=== PATIENT | female | born 1960 | race Caucasian/White ===

== ENCOUNTER 2016-04-29 06:57 | Emergency (ER) | payer OTHER ==
[~2016-04-29] VITALS: Ht 157.5 cm; Wt 80.6 kg
[~2016-04-29 06:57] MED LIST: COEN10CA5 PO; CYAN100020 PO; MULTTAB58 PO; TOPI100T34 PO
[2016-04-29 07:02] VITALS: BP 203/108; PULSE 94; TEMP 36.6; O2SAT 100; Ht 157.5 cm; Wt 80.6 kg
[2016-04-29] MEDS ORDERED: IBUP-1427 PO (07:42)
[2016-04-29] MEDS ORDERED: HYDR-5688 PO (07:42)
[2016-04-29] MEDS ORDERED: HYDROCODONE/ACETAMOPHEN 5/325MG TAB PO ONE (07:45)
--- NOTE | 2016-04-29 07:46 | EMERGENCY ROOM VISIT NOTE ---
History Report prepared by Morro: Pb Raymond Under the Supervision of: Dr. Reynaldo Garcia M.D. First contact with patient: 07:09 Chief Complaint: OTHER COMPLAINT Stated Complaint: SHINGLES,PAIN History of Present Illness The patient is a 55 year old female who presents to the Emergency Room with complaints of worsening pain associated with shingles for the past week. The patient describes a burning sensation that is somewhat relieved from Ibuprofen and is rated 7/10 in severity. She has the pain along with lesions on the left side of her face, neck, and back of her head. The patient also feels the pain in her left ear and throat. The patient was diagnosed with shingles at [facility] two days ago. She noticed the rash several days after the onset of her pain. She does not have any pain or lesions on the end of her nose or the rest of her body. The patient notes that she has some blurry vision from the left eye. The patient is on Valtrex which she started two days ago. The patient denies abdominal pain, problems with her bowels or other symptoms. Source of History: patient Onset: one week ago Position: other (left side of face) Symptom Intensity: 7/10 Quality: burning, other (shingles) Timing: worsening Modifying Factors (Relieving): ibuprofen Associated Symptoms: No abdominal pain Review of Systems All systems have been listed, reviewed, and are negative other than those previously mentioned. Please see Additional Medical History Sheet. Past Medical & Surgical Medical Problems: (1) Cervical stenosis of spinal canal Surgical Problems: (1) H/O neck surgery (2) H/O: hysterectomy Family History Cancer FH: aneurysm Gallbladder disease Heart disease Hypertension Social History Smoking Status: Current Every Day Smoker Alcohol Use: occasionally Marital Status: , in relationship Housing Status: lives with family Occupation Status: employed Current/Historical Medications Scheduled Topiramate (Topamax), 50 MG PO BID Valacyclovir (Valtrex), 1,000 MG PO TID Scheduled PRN Hydrocodone/Acetaminophen 5MG/325MG (Bradley 5MG/325MG), 1-2 TABLETS PO Q4 PRN for Pain Ibuprofen Tab (Motrin), 600 MG PO Q6H PRN for Pain Allergies Coded Allergies: No Known Allergies (Unverified , 03/18/14) Physical Exam Vital Signs Date Time Temp Pulse Resp B/P Pulse Ox O2 Delivery O2 Flow Rate FiO2 04/29/16 07:02 36.6 94 20 203/108 100 Room Air Physical Exam GENERAL: Patient awake, alert, oriented x 3. Patient follows commands. Patient does not appear toxic. Patient is adequately hydrated and well- nourished. SKIN: No erythema, pallor, or cyanosis. HEENT: Multiple lesions on the left side of her face in various stages of eruption. Few small lesions on the back of her scalp on the left side. Slit lamp examination with fluorescein reveals no uptake or lesions of the cornea or conjunctiva, anterior chamber was clear. Does not appear to have any lesions in the ear canal itself but does have some on the left ear lobe. No lesions on the end of her nose. Oral cavity and posterior pharynx appear normal. Neck: Without adenopathy, no neck vein distention. LUNGS: Clear to auscultation. No wheezes, no rales, no rhonchi. HEART: No murmurs. No gallops. No rubs NEUROLOGIC: Cranial nerves II-XII within normal limits. No gross motor sensory function deficits. Medical Decision & Procedures Medications Administered Medications (Trade) Dose Ordered Sig/Steve Route Start Time Stop Time Status Last Admin Dose Admin Acetaminophen/ Hydrocodone Bitart (Bradley 5/325 Tab) 2 tab ONE ONCE PO 04/29/16 07:45 04/29/16 07:46 DC 04/29/16 07:47 2 TAB Procedure Slit Lamp Examination Indication: blurry vision. The left eye was prepped with topical proparacaine. Slit lamp examination was performed in the standard fashion. Cornea appeared clear. Anterior chamber was clear. Scleral injection not present. No discharge present. Fluorescein examination performed and revealed no uptake. No foreign bodies noted. Negative Urbano sign. The patient tolerated the procedure well without complication. ED Course 0710: Past medical records reviewed. The patient was evaluated in room A10. A complete history and physical examination was performed. 0717: Slit lamp examination performed. Please see procedural note above. 0740: Discussed the discharge instructions with the patient. She verbalized understanding and agreement of the plan. 0745: The [place] Prescription Drug Monitoring Program was reviewed regarding this patient. No issues were found. Medical Decision I considered multiple diagnoses including herpes zoster, herpes ophthalmicus, Xiomara Philip syndrome. The patient appears to have herpes zoster over the face without involvement of the nose or eye. The patient does not have facial paralysis. The patient is currently on Valtrex. The patient is to take pain medication as needed and continue the Valtrex. She is to follow-up with a family physician. If she has any further eye symptoms she is to follow-up with an relationship consultant or fiberglass boat finisher. [place] Drug Monitoring Program Search Results: patient reviewed within database, no issues identified Impression Primary Impression: Herpes zoster Scribe Attestation The scribe's documentation has been prepared under my direction and personally reviewed by me in its entirety. I confirm that the note above accurately reflects all work, treatment, procedures, and medical decision making performed by me. Departure Information Dispostion Home / Self-Care Prescriptions Hydrocodone/Acetaminophen 5MG/325MG (Bradley 5MG/325MG) Tab 1-2 TABLETS PO Q4 Y for Pain, #30 TAB PRN PAIN Prov: Reynaldo Garcia M.D. 04/29/16 Ibuprofen Tab (MOTRIN) 600 Mg Tab 600 MG PO Q6H Y for Pain, #30 TAB Prov: Reynaldo Garcia M.D. 04/29/16 Referrals No Doctor, Assigned (PCP) Forms HOME CARE DOCUMENTATION FORM, IMPORTANT VISIT INFORMATION Patient Instructions My [facility] [employer], Shingles Herpes Zoster Additional Instructions Continue Valtrex 3 times a day for a total of 7 days. Continue ibuprofen 600 mg every 6 hours until pain has resolved. You may take 1-2 hydrocodone every 4 hours as needed for more severe pain. Do not drive or operate machinery while taking narcotics. Follow-up with your family physician or eye doctor if you have any more symptoms involving your eye.
[2016-04-29] MEDS ORDERED: VALA500T60 PO (07:56)
== END 2016-04-29 08:04 | disposition home or self-care (01) ==
LOC: C.EDB 06:59 → C.EDA 08:04
DX: B02.9 Zoster without complications (principal); F17.200 Nicotine dependence, unspecified, uncomplicated; Z90.710 Acquired absence of both cervix and uterus; Z98.890 Other specified postprocedural states; Z82.49 Family history of ischemic heart disease and other diseases of the circulatory system

== ENCOUNTER 2021-05-10 05:15 | Inpatient (IN) ==
[2021-05-10] MEDS ORDERED: ASPIRIN 81 MG CHEW PO STA (05:29)
--- NOTE | 2021-05-10 05:29 | Emergency Department Note ---
History of Present Illness General Chief complaint: Chest Pain Stated complaint: CHEST PAIN,HANDS TINGLE,SPASMS,SWEATS Time Seen by Provider: 05/10/21 05:19 History of Present Illness Maximum Pain Intensity: 10 60-year-old female presents emergency department with sudden onset of substernal chest pressure that radiated to her left arm with associated shortness of breath diaphoresis that has been ongoing since 2 AM this morning. Patient has taken aspirin prior to arrival. Patient states that the pains actually decreased she describes it as a chest tightness. Patient is a smoker has a history of hypertension. Patient has no prior cardiac history patient currently rates the pain 2 out of 10 radiating to the left arm. There were no other mitigating or alleviating factors Home Medications Medication Instructions Recorded Confirmed Type fluoxetine 10 mg capsule 20 mg PO DAILY 12/06/18 05/10/21 History hydrochlorothiazide 12.5 mg capsule 25 mg PO DAILY 12/06/18 05/10/21 History amlodipine 10 mg tablet 10 mg PO DAILY 05/10/21 05/10/21 History losartan 100 mg tablet 100 mg PO DAILY 05/10/21 05/10/21 History Allergies Allergy/AdvReac Type Severity Reaction Status Date / Time No Known Allergies Allergy Verified 05/10/21 05:57 Past Med/Surg History Medical History (Updated 05/10/21 @ 06:05 by Hussein Hodge DO) Cervical stenosis of spinal canal (04/30/13) HTN (hypertension) Surgical History H/O neck surgery H/O: hysterectomy Social History Smoking Status: Current some day smoker Preferred Language: Norwegian Feels Safe at Home: Yes Review of Systems A total of 10 systems reviewed and were otherwise negative Respiratory: no chest congestion Cardiovascular: + chest pain, + chest pain at rest, + radiating jaw, neck or arm pain and + dyspnea on exertion Gastrointestinal: + nausea Physical Exam Vital Signs Vital Signs - 24 hr 05/10/21 05:18 05/10/21 05:33 05/10/21 05:36 Temperature 36 C L Temperature Source Temporal Artery Scan Pulse Rate 89 88 93 H Pulse Rate from SpO2 Sensor Respiratory Rate 20 18 17 Blood Pressure 155/82 H 176/108 H 188/104 H Blood Pressure Mean 106 130 132 Blood Pressure Position Sitting Pulse Oximetry 98 97 97 Oxygen Delivery Method Room Air Room Air Room Air Sepsis Recent Fever Within 48 Hours No Sepsis New/Unexplained Change in Mental Status N/A Sepsis Action Taken by Nursing No Action Required 05/10/21 05:45 05/10/21 05:51 05/10/21 06:00 Temperature Temperature Source Pulse Rate 92 H 96 H 90 Pulse Rate from SpO2 Sensor 91 H Respiratory Rate 19 24 16 Blood Pressure 156/94 H 141/91 H Blood Pressure Mean 114 107 Blood Pressure Position Pulse Oximetry 99 94 Oxygen Delivery Method Room Air Room Air Sepsis Recent Fever Within 48 Hours Sepsis New/Unexplained Change in Mental Status Sepsis Action Taken by Nursing VITAL SIGNS - Vital signs and nursing notes were reviewed. GENERAL - []-year-old [] appearing [] stated age who is in no acute distress. Communicates well with provider and answers questions appropriately. SKIN - Without rashes. HEAD - NC/AT. EYES - PERRL with EOMI bilaterally. Sclera anicteric. Palpebral conjunctiva pink and moist with no injection noted. EARS - No deformities of external structures noted on gross examination bilaterally. No pain elicited with palpation of the tragus bilaterally. External auditory canals without discharge or otorrhea. Tympanic membranes pearly hicks without retraction or bulging. No fluid or purulent material visualized behind the TM. Handle of malleus, umbo, cone of light, pars tensa/flaccid all easily visualized. NOSE - Midline and without cyanosis. No epistaxis or purulent drainage noted. Septum midline without deviation or septal hematoma noted. MOUTH/OROPHARYNX - Without perioral cyanosis. Buccal mucosa pink and moist and without leukoplakia. Tongue midline with equal elevation of palate bilaterally. No tonsillar hypertrophy, erythema, or exudates noted. [] dentition noted. NECK - Neck with FROM. Supple to palpation. [] lymphadenopathy noted. No nuchal rigidity. LUNGS - Chest wall symmetric without accessory muscle use, intercostals retractions, or central cyanosis. Normal vesicular breath sounds CTA B/L. No wheezes, rales, or rhonchi appreciated. CARDIAC - RRR with S1/S2. No murmur, rubs, or gallops appreciated. ABDOMEN - Abdominal contour [] without pulsations or visible masses. BS normoactive all four quadrants. No tenderness, palpable masses, hepatosplenomegaly, or ascites noted. EXTREMITIES - No clubbing or peripheral cyanosis. No pretibial edema present. +3/5 radial, posterior tibial, and dorsalis pedis pulses palpated throughout. +5/5 strength noted in UE/LE bilaterally. NEUROLOGIC - Cranial nerves II through XII grossly intact. Sensory intact to light touch throughout. Patellar reflexes +2/4. PSYCH - A&Ox3 and cooperates fully with examiner. Pt is very pleasant and interacts well with examiner. Course Reevaluation(s) Reevaluation #1: PatientCardiac cath team was activated immediately after the EKG showing inferior wall PR. The case was discussed with the [facility] Hospitalist also for admission at 5:39 AM. Reevaluation #2: Patient is currently resting in mild distress with 3 out of 10 chest pain blood pressure systolic greater than 170, currently awaiting cardiac cath team arrival Reevaluation #3: 50 4 AM patient states decreased pain from 9 out of 10 down to a 2 out of 10, was given IV fentanyl, nitro. Consultations Consultation #1: Dr Reyes at bedside 603am, report given to him by me; pt to cardiac bottle label inspector Administered Medications Discontinued Medications Aspirin (Aspirin 81 Mg Chew) 324 mg PO NOW STA Stop: 05/10/21 05:30 Last Admin: 05/10/21 05:34 Dose: 324 mg Documented by: [id number] Fentanyl Citrate (Fentanyl Citrate 100 Mcg/2 Ml Vial) Confirm Administered Dose 100 mcg .ROUTE .STK-MED ONE Stop: 05/10/21 05:46 Last Increment: 05/10/21 05:49 Dose: 50 mcg Documented by: [id number] Nitroglycerin (Nitroglycerin Sl 0.4 Mg/Tab Tab) Confirm Administered Dose 0.4 mg .ROUTE .STK-MED ONE Stop: 05/10/21 05:48 Last Admin: 05/10/21 05:48 Dose: 0.4 mg Documented by: [id number] Critical Care Time Critical Care Time: Yes Total Critical Care Time: 35 Total critical care time is 35 minutes involving a patient with an acute inferior wall PR, with multiple reevaluations, discussion with nurses, review of old records, discussion with , discussion with cardiac industry consultant Medical Decision Making Medical Records Attestation: I reviewed the patient's medical records. Laboratory Data Attestation: I reviewed the patient's lab results. Result diagrams: 05/10/21 05:39 05/10/21 05:39 Lab Results 05/10/21 05/10/21 05/10/21 Range/Units 05:34 05:39 05:39 WBC 7.47 (4.8-10.8) K/uL RBC 4.45 (4.2-5.4) M/uL Hgb 13.8 (12.0-16.0) g/dL Hct 40.1 (37-47) % MCV 90.1 (80-100) fL MCH 31.0 (25-34) pg MCHC 34.4 (32-36) g/dL RDW Std Deviation 45.9 (36.4-46.3) fL RDW Coeff of Abdias 13.9 (11.5-14.5) % Plt Count 329 (130-400) K/uL MPV 9.6 (7.4-10.4) fL Immature Gran % (Auto) 0.3 % Neut % (Auto) 67.2 % Lymph % (Auto) 20.9 % Mcdonough % (Auto) 9.8 % Eos % (Auto) 1.3 % Baso % (Auto) 0.5 % Neut # (Auto) 5.02 (1.4-6.5) K/uL Lymph # (Auto) 1.56 (1.2-3.4) K/uL Mcdonough # (Auto) 0.73 H (0.11-0.59) K/uL Eos # (Auto) 0.10 (0-0.5) K/uL Baso # (Auto) 0.04 (0-0.2) K/uL Immature Gran # (Auto) 0.02 (0.00-0.02) K/uL Sodium 134 L (136-145) mmol/L Potassium 3.9 (3.5-5.1) mmol/L Chloride 101 (98-107) mmol/L Carbon Dioxide 24 (21-32) mmol/L Anion Gap 9 (3-11) BUN 12 (6-23) mg/dl Creatinine 0.66 (0.6-1.2) mg/dl Est Cr Clr Drug Dosing 95.3 ml/min Est GFR ( Amer) 112.9 ml/min Est GFR (Non-Af Amer) 97.4 ml/min BUN/Creatinine Ratio 18.2 (10-20) Glucose 172 H (70-99(Fasting)) mg/dl Calcium 9.1 (8.5-10.1) mg/dl Total Bilirubin 0.3 (0.2-1.0) mg/dl AST 21 (13-39) U/L ALT 28 (7-52) U/L Alkaline Phosphatase 69 (34-104) U/L Troponin I 0.34 H* (0-0.04) ng/ml Total Protein 6.8 (6.0-8.3) gm/dl Albumin 4.3 (3.4-5.0) gm/dl Globulin 2.5 (2.5-4.0) gm/dl Albumin/Globulin Ratio 1.7 (0.9-2) SARS-CoV-2, RNA, NAAT NEGATIVE (NEGATIVE) Imaging Data Attestation: I personally reviewed and interpreted this imaging study as follows: My Impression: Chest x-ray interpreted by me cardiomegaly normal mediastinum no obvious infiltrate or pneumothorax ECG Data Attestation: I personally reviewed and interpreted this ECG as follows: Additional Comments: EKG interpreted by me normal sinus rhythm rate of 91 normal intervals there is ST segment elevation in 2 3 and aVF with reciprocal changes in V1 1 V2 1 and aVL consistent with acute inferior wall PR EKG #2 is a right-sided EKG interpreted by me V3 ER and V4 are do not show any significant ST segment elevation, patient still has obvious inferior wall PR in leads II, III and aVF with ST segment elevation present MDM Narrative Medical decision making differential diagnosis angina, unstable angina, acute coronary syndrome, acute PR, musculoskeletal chest pain, GERD; plan is to check labs cardiac evaluation, patient has an ST segment elevation PR that is inferior on EKG, immediately the cardiac cath team was activated Impression & Plan ST elevation myocardial infarction (STEMI), Chest pain Discharge Plan Visit Data Chief Complaint: Chest Pain Stated Complaint: CHEST PAIN,HANDS TINGLE,SPASMS,SWEATS ED Provider: Hussein Hodge Discharge Problem: ST elevation myocardial infarction (STEMI), Chest pain Patient Disposition: Admitted As Inpatient Discharge Instructions Interventions: ED Discharge Assessment Last Done: 05/10/21 06:05 Discharge Problem: ST elevation myocardial infarction (STEMI) Qualifiers: Involved coronary artery: right coronary artery Qualified Code(s): I21.11 - ST elevation (STEMI) myocardial infarction involving right coronary artery Chest pain Qualifiers: Chest pain type: chest pain due to myocardial ischemia
[2021-05-10] MEDS ORDERED: fentaNYL citrate 100 MCG/2 ML VIAL ONE ×2 (05:45→05:46)
[2021-05-10] MEDS ORDERED: HEPARIN (PORCINE) 1000 UNIT/ML 10 ML (CATH LAB USE ONLY) ONE (05:46)
[2021-05-10] MEDS ORDERED: MIDAZOLAM HCL 1 MG/ML 2ML VIAL ONE ×2 (05:46→06:47)
[2021-05-10] MEDS ORDERED: niCARdipine HCL INJ 2.5 MG/ML 10 ML AMP ONE (05:46)
[2021-05-10] MEDS ORDERED: NITROGLYCERIN SL 0.4 MG/TAB TAB ONE ×2 (05:47→05:48)
[2021-05-10] MEDS ORDERED: NITROGLYCERIN/D5W 100MCG/ML 20ML SYR ONE (05:47)
[2021-05-10 05:56] LABS: Basophils # (auto) 0.04 K/uL (0-0.2); Basophils % (auto) 0.5 %; Eosinophils % (auto) 1.3 %; Hematocrit (blood only) 40.1 % (37-47); Hemoglobin 13.8 g/dL (12.0-16.0); Immature Granulocytes # (auto) 0.02 K/uL (0.00-0.02); Immature Granulocytes % (auto) 0.3 %; Lymphocytes # (auto) 1.56 K/uL (1.2-3.4); Lymphocytes % (auto) 20.9 %; Mean Corpuscular Hgb Conc 34.4 g/dL (32-36); Mean Corpuscular Volume 90.1 fL (80-100); Mean Platelet Volume 9.6 fL (7.4-10.4); Monocytes # (auto) 0.73 K/uL (0.11-0.59); Monocytes % (auto) 9.8 %; Neutrophils # (auto) 5.02 K/uL (1.4-6.5); Neutrophils % (auto) 67.2 %; Platelet Count 329 K/uL (130-400); RDW Coefficient of Variation 13.9 % (11.5-14.5); RDW Standard Deviation 45.9 fL (36.4-46.3); Red Blood Count 4.45 M/uL (4.2-5.4); White Blood Count 7.47 K/uL (4.8-10.8)
--- NOTE | 2021-05-10 06:10 | Pre Anesthesia Assessment ---
Date of Service May 10, 2021 Pre Sedation Assessment Vital Signs Temp Pulse Resp BP Pulse Ox 05/10/21 06:00 90 16 141/91 H 05/10/21 05:51 96 H 24 156/94 H 94 05/10/21 05:45 92 H 19 99 05/10/21 05:36 93 H 17 188/104 H 97 05/10/21 05:33 88 18 176/108 H 97 05/10/21 05:18 96.8 F L 89 20 155/82 H 98 Cardiovascular RRR, no murmur, no edema Respiratory normal respiratory effort, lungs clear to auscultation Pre-Sedation Airway Assessment Smoking Status: Current some day smoker Hx Sleep Apnea: No Hx Difficult Intubation: No Short, Thick Neck: No Thyromental Distance: < 3.5 Finger Breadths Oral Cavity: + WNL Mallampati Class: III ASA: ASA4 Procedure Planning Contraindications for Sedation: none Current Medications Reviewed: Yes Notes The planned sedation has been discussed with the patient. Informed Consent was obtained. I have identified the patient, determined the appropriateness of sedation and have assessed the patient immediately prior to the procedure. All medicine(s) and interventions are by my order.
--- NOTE | 2021-05-10 06:15 | Cardiology Consultation ---
Date of Consultation May 10, 2021 Assessment & Plan (1) ST elevation myocardial infarction (STEMI): Presentation consistent with inferior STEMI and recommend proceeding with emergent cardiac catheterization and likely primary PCI. No apparent contraindications to procedure. Discussed risks, benefits, alternatives of procedure with patient and they are willing to proceed. Given aspirin in the ED. Further recommendations pending findings of coronary angiography. History of Present Illness History of Present Illness 60-year-old woman here with acute chest pain and ECG concerning for acute AK. Patient seen emergently in the ED after heart alert activated on arrival. No prior cardiac history. Cardiac risk factors include hypertension, active smoking and family history of CAD (brother of AK at age 60, mother had angioplasty, from brain aneurysm). Other medical issues include cervical spinal stenosis post neck surgery, recent ankle fracture. Chest pain began approximately around 2 in the morning, 3 hours prior to arrival after had been awoken by her dog. Describes substernal pain radiating to arm with associated nausea. Denies similar symptoms in the past. Chest pain at time of arrival 09/03. Hemodynamically stable. EKG showed inferior ST elevations. Allergies Allergy/AdvReac Type Severity Reaction Status Date / Time No Known Allergies Allergy Verified 05/10/21 05:57 Home Medications Medication Instructions Recorded Confirmed Type fluoxetine 10 mg capsule 20 mg PO DAILY 12/06/18 05/10/21 History hydrochlorothiazide 12.5 mg capsule 25 mg PO DAILY 12/06/18 05/10/21 History amlodipine 10 mg tablet 10 mg PO DAILY 05/10/21 05/10/21 History losartan 100 mg tablet 100 mg PO DAILY 05/10/21 05/10/21 History Patient History Medical History (Updated 05/10/21 @ 06:05 by Hussein Hodge DO) Cervical stenosis of spinal canal (04/30/13) HTN (hypertension) Surgical History H/O neck surgery H/O: hysterectomy Social History Smoking Status: Current some day smoker Preferred Language: Ghanaian Feels Safe at Home: Yes Review of Systems Review of Systems: All systems reviewed & are unremarkable except as noted in HPI & below Physical Exam Physical Exam: General: Comfortable HEENT: Sclerae anicteric Lungs: Clear to auscultation bilaterally Cardiac: Regular rate and rhythm, no murmurs. Vascular: 2+ radial Abdomen: Soft, nontender Extremities: Well perfused, no peripheral edema Neuro: Nonfocal Psych: Alert orient x3, normal affect and mood Results & Data ([facility]) Vital Signs (Past 12 Hours) Vital Signs Temp Pulse Resp BP Pulse Ox 05/10/21 06:00 90 16 141/91 H 05/10/21 05:51 96 H 24 156/94 H 94 05/10/21 05:45 92 H 19 99 05/10/21 05:36 93 H 17 188/104 H 97 05/10/21 05:33 88 18 176/108 H 97 05/10/21 05:18 96.8 F L 89 20 155/82 H 98 PG Care Time/CCT Total # of Minutes Spent Total Time Spent with Patient: Total time spent is greater than 50% in coordination of care (as documented) at patient's floor/unit and/or counseling patient: Coding Level of Care Code 78245 Inpt Consult Level [address] elevation myocardial infarction (STEMI) I21.11 Involved coronary artery: right coronary artery (1) ST elevation myocardial infarction (STEMI) Involved coronary artery: right coronary artery Qualified Code(s): I21.11 - ST elevation (STEMI) myocardial infarction involving right coronary artery
[2021-05-10 06:23] LABS: Albumin Globulin Ratio 1.7 (0.9-2); Albumin Level 4.3 gm/dl (3.4-5.0); BUN Creatinine Ratio 18.2 (10-20); Bilirubin,Total 0.3 mg/dl (0.2-1.0); Calcium 9.1 mg/dl (8.5-10.1); Creatinine Clr Calc Pharmacy 95.3 ml/min; Est GFR (African American) 112.9 ml/min; Est GFR (Non-African American) 97.4 ml/min; Globulin 2.5 gm/dl (2.5-4.0); Potassium 3.9 mmol/L (3.5-5.1); Total Protein 6.8 gm/dl (6.0-8.3)
[2021-05-10 06:30] LABS: Troponin I 0.34 ng/ml (0-0.04)
[2021-05-10 06:48] LABS: INR 0.9 (0.9-1.1); Partial Thromboplastin Ratio 0.9; Partial Thromboplastin Time 25.9 Seconds (21.0-31.0); Prothrombin Time 9.9 Seconds (9.0-12.0)
--- NOTE | 2021-05-10 06:51 | XRay Report ---
XR chest 1V portable CLINICAL HISTORY: Atypical chest pain. COMPARISON STUDY: Chest radiograph April 21, 2013. FINDINGS: Lung volumes are normal. No pneumothorax or pleural effusion is noted. There is no consolid ation to suggest pneumonia. Mild cardiomegaly is noted. There is no evidence for pulmonary edema. The re are postoperative findings within the cervical spine. Mild elevation of the right hemidiaphragm is unchanged. IMPRESSION: No acute cardiopulmonary findings. Mild cardiomegaly. ACT 112: Negative or not required by law. Electronically signed by: Dionisio Mccarthy M.D. 05/10/2021 6:50 AM
[2021-05-10] MEDS ORDERED: TICAGRELOR 90 MG TAB PO ONE (07:27)
--- NOTE | 2021-05-10 07:31 | Post Anesthesia Assessment ---
Date of Service May 10, 2021 Post Sedation Assessment Vital Signs Temp Pulse Resp BP Pulse Ox 05/10/21 06:00 90 16 141/91 H 05/10/21 05:51 96 H 24 156/94 H 94 05/10/21 05:45 92 H 19 99 05/10/21 05:36 93 H 17 188/104 H 97 05/10/21 05:33 88 18 176/108 H 97 05/10/21 05:18 96.8 F L 89 20 155/82 H 98 Recovery Score Activity: Moves 4 extremities Respiration: Deep Breath/Cough Circulation: +/-20% PreAnes Value Consciousness: Fully Awake Oxygen Saturation: O2 needed for >90% Discharge Sedation Level of Care: Fast Track Phase II Post Sedation Plan On clinical assessment, the patient appears to have tolerated the sedation without complications. Patient is recovering as anticipated. Patient will continue to be monitored by nursing and may be discharged when sedation discharge criteria are met per below protocol. Upon Completions of procedure up to 15 minutes continue every 5 minute vital signs and the P.A.R. score; then discharge to a Phase I or Fast Track to Phase II per the following guidelines: * Discharge Patient to appropriate Phase II area if PAR is 8 or greater or return to pre- procedure baseline. The post - procedure orders will be as directed. * If PAR score is less than 8 or not return to pre-procedure baseline then patient will follow Phase I monitoring till PAR is reached for Phase II. The Phase I may be done in procedure room or may call to secure a Phase I area. * If naloxone or flumazenil are used for reversal, hold in Phase I for continued monitoring from when last reversal dose was given for a minimum of 60 minutes or longer pending the nurse and/or physician discretion of patient condition before discharge to Phase II. Please call the Sedation Physician to re-evaluate and complete post-note for discharge to Phase II area. Do NOT discharge from procedure sedation or Phase 1 until post- sedation evaluation note is complete by procedure /sedation MD Sedation Discharge Instructions to be given to the patient at discharge to home.
[2021-05-10] MEDS ORDERED: ONDANSETRON INJ 2 MG/ML 2 ML VIAL IV PRN (07:32)
[2021-05-10] MEDS ORDERED: NITROGLYCERIN SL 0.4 MG/TAB TAB SL PRN (07:32)
[2021-05-10] MEDS ORDERED: ACETAMINOPHEN 325 MG TAB PO PRN (07:32)
[2021-05-10] MEDS ORDERED: ICU PROTOCOL FOR HYPERGLYCEMIA PRN (07:37)
[2021-05-10] MEDS ORDERED: SODIUM CHLORIDE 0.9% 1000ML 1,000 ML IV SCH (07:45)
--- NOTE | 2021-05-10 08:05 | Cardiac Catheterization ---
[facility] Data: Felt Finisher Cardiac Status Clinical evaluation leading to the procedure CAD Presenation: STEMI Anginal Classification: CCS IV Heart Failure: No Cardiogenic Shock within 24 Hours: No Cardiac Arrest within 24 Hours: No Imaging Studies Past 6 Months: No Stress Studies Past 6 Months: No Diagnostic Physicians Name: Yariel Reyes MD Closure Device Percutaneous Entry Location: Radial Closure Device: Radial Band Recommendations: PCI without planned CABG PCI Indication: Immediate PCI for STEMI Lesion Segment Name: distal RCA Culprit Artery: Yes Stenosis Prior to Rx (%): 99 Chronic Total Occlusion: No IVUS: No FFR: No Pre-Procedure PALOMO Flow: 3 Previously Treated Lesion: No Lesion Complexity: Non-High/Non-C Thrombus Present: Yes Bifurcation Lesion: No Guidewire Across Lesion: Stenosis Post-Procedure (%): 0 Post-Procedure PALOMO Flow: 3 Devices(s) Deployed: Yes Yes Intraprocedure Events Significant Disection: No Perforation: No Cardiac Cath Procedure Full Procedure Date May 10, 2021 Pre-Procedure Diagnosis Pre-Procedure Diagnosis: STEMI AUC Score AUC Score: 9 Post-Procedure Diagnosis Post-Procedure Diagnosis: Severe CAD, Successful PCI and Elevated Intracardiac Pressures Procedure(s) Performed Procedure(s) Performed: Coronary Angiography, Left Heart Cath and Drug Eluting Stent Pugger Helper Yariel Reyes MD Conveyor Worker(s) Customer Service Voice Estimated Blood Loss Estimated Blood Loss: 15 Medication(s) Medication(s): Fentanyl, Heparin, Lidocaine 1%, Nicardipine, Nitroglycerin and Versed Medication(s): Ticagrelor Summary of Findings Indication: STEMI/Heart Alert Access: 6 Fr right radial artery Catheters: [place], JL 3.5, JR4 guide Findings: LM -in caliber, no significant disease LAD -medium caliber, 30% mid segment disease, distal vessel tapers to apex. Medium D1, D2 without significant disease. Circumflex -small caliber, no significant disease. RCA -dominant, medium caliber, 30% proximal disease, 50% mid segment disease, 99% distal stenosis. Small right PDA, PLB without significant disease LVEDP -30 -- PCI -- Antithrombotic therapy: Heparin, ticagrelor Procedure: RCA cannulated with JR4 guide Brim Cutter 50 wire passed across lesion into distal vessel Distal RCA lesion predilated with 2.0 compliant balloon Dilated lesion stented with 2.25 x 22 [place] drug-eluting stent Stent post-dilated with 2.5 noncompliant balloon IC vasodilators administered for spasm Moderate residual stenosis just prior to stent and second FRED (2.5 x 12 mm Phuc) placed across stenosis overlapping proximal aspect of initial stent Stent postdilated with 3.0 NC balloon Post procedure PALOMO 3 flow, stents well expanded with minimal residual stenosis and no apparent cardiac complications. Arterial Closure: TR band Summary: 1. Inferior STEMI/acute 99% distal RCA stenosis 2. Mild to moderate non-culprit coronary artery disease -30% mid LAD 50% mid RCA 3. Elevated intracardiac filling pressure 4. Successful PCI of mid to distal RCA with 2 overlapping drug-eluting stents (2.5 x 12, 2.25 x 22 mm Phuc; postdilated with 3.0 NC) Recommendations: Admit to ICU for continued monitoring Loaded with ticagrelor 180 mg in Felt Finisher Continue dual-antiplatelet therapy for at least 1 year. Trend troponins until peak, Check Echo Uptitrate beta-hermelinda/ARB as BP allows High-dose statin Consult cardiac Rehab Hemodynamics Rest Ao:: 140/78/106 Final Ao: 125/72/105 LV: 140/32 Recommendations Recommendations: PCI without planned CABG Specimens Specimens: None Radiation Exposure (mGy) 3647 Contrast (mls) 150 Fluids (cc crystalloids) Fluids (cc crystalloids): 126 Drains Drains: none Anesthesia moderate [id number] Procedural Complication(s) None Disposition ICU I attest to the content of the Intraoperative Record and any orders documented therein. Any exceptions are noted below. [facility] Card Cath Procedure Codes Cardiac Catheterization Procedure 1: Cardiovascular Cath Procedures: 47456 Coronaries and LHC (+/-LV) Moderate Sedation Procedure 1: Sedation/Anesthesia: 26553 Mod Sedation by the same physician;Init15 Min Child Age 5 & Up Procedure 2: Sedation/Anesthesia: 48168 Mod Sedation by the same physician; Ea [id number] Minutes Stenting Procedure 1: Cardiovascular Stent Procedures: 75711 Perc transluminal revascularization of acute sub/total occl, aMI PG Care Time/CCT Total # of Minutes Spent Total Time Spent with Patient: Total time spent is greater than 50% in coordination of care (as documented) at patient's floor/unit and/or counseling patient:
--- NOTE | 2021-05-10 08:35 | History & Physical Report ---
Date of Service May 10, 2021 Assessment & Plan (1) ST elevation myocardial infarction (STEMI): (2) Chest pain: (3) Tobacco use: (4) HTN (hypertension): Plan: - Admitted for chest pain found to have inferior STEMI -Taken to the cardiac [facility] by Dr. Reyes 05/10/2021, now s/p 2 overlapping FRED placement in the mid to distal RCA -Loaded with Brilinta 180 mg in the Target Trimmer -Continue dual antiplatelet therapy x1 year (Brillinta and baby asa) -Initial troponin was 0.34 will trend until peak -Check 2D echo -Started on metoprolol 25 mg BID, losartan 25 mg QAM, titrate up as BP allows -Initiated high-dose statin therapy -Consult cardiac rehab -Consult cardiology, Dr. Cleveland - Discussed tobacco cessation at bedside, she denies the need for a nicotine patch, diet and exercise were discussed as well. DVT PPx - teds, scds, dual antiplatelet therapy CODE: Full code Dispo: From home, likely to remain in the hospital x 1-2 days Admission and Anticipated Discharge Date Admission Date: May 10, 2021 History of Present Illness Chief Complaint: Chest pain Primary Care Provider: Caty Myers DO This is a 60-year-old W with PMHx of HTN, tobacco use, and family history with a brother who of an SC at age 60, mother with angioplasty and from brain aneurysm. Her other medical history includes cervical spinal stenosis s/p neck surgery, and recent ankle fracture. She reports going to bed without any pain around 10-11pm, and was woken up by her dog early in the morning. She went to use the restroom and noticed increased SOB and thought at first it was abdominal cramping, but then quickly realized it was pain in her chest, and started sweating. She presented acutely to the ER approximately 2 AM with chest pain. She describes substernal pain with radiation to the arm, nausea and shortness of breath. Never in the past has ever experienced pain like this. Her chest pain initially was a 7/10 and was hemodynamically stable. Her EKG was changed showing inferior ST wave elevations. Heart alert was called and patient was taken to the cardiac [facility] by Dr. Reyes. Distal RCA was found to be 99% occluded, and 2 FRED were placed; one in the distal RCA, the second placed overlapping the proximal aspect of the initial stent due to moderate residual stenosis after the initial stent placement. Other findings include 30% occlusion of the mid LAD, 50% occlusion of the mid RCA. Patient was placed in t ICU for post procedural monitoring. Currently has no chest pain. Pt reports drinking alcohol 2-3 drinks, 3 times per week. She smokes cigarettes while she drinks, and considers herself a "closet smoker" because nobody in her family knows she does this. Allergies Allergy/AdvReac Type Severity Reaction Status Date / Time No Known Allergies Allergy Verified 05/10/21 05:57 Home Medications Medication Instructions Recorded Confirmed Type fluoxetine 10 mg capsule 20 mg PO DAILY 12/06/18 05/10/21 History hydrochlorothiazide 12.5 mg capsule 25 mg PO DAILY 12/06/18 05/10/21 History amlodipine 10 mg tablet 10 mg PO DAILY 05/10/21 05/10/21 History losartan 100 mg tablet 100 mg PO DAILY 05/10/21 05/10/21 History Past Med/Surg History Medical History Cervical stenosis of spinal canal (04/30/13) HTN (hypertension) Surgical History H/O neck surgery H/O: hysterectomy Social History Smoking Status: Current some day smoker Hx Alcohol Use: Yes Hx Substance Use: No Preferred Language: Syrian Communication Ability: Effective Application Penetration Tester Required: No Beliefs That Will Affect Care: None marital status: Current Living Situation: Spouse Feels Safe at Home: Yes Safety Concerns: Feels Safe At This Time Assistive Devices: None Review of Systems Review of Systems: Constitutional: No fever, sweats or chills Eyes: No diplopia, no worsening or blurred vision ENT: normal hearing, no trouble swallowing Respiratory: No cough, sputum, dyspnea at rest or on exertion Cardiovascular: No chest pain, tightness or palpitations Abdomen: No pain, nausea, vomiting, diarrhea or constipation Musculoskeletal: No joint pain, calf pain, swelling Neurologic: No weakness, numbness/tingling, or balance problems Psychiatric: No anxiety or depression Skin: No rash or itch Physical Exam Physical Exam: General: awake, alert, no apparent distress, obese with BMI of 30 Head: Normocephalic, atraumatic ENT: PERRL, EOMI, no pharyngeal exudate, mucous membranes moist Chest: Clear to auscultation, on room air, no adventitious breath sounds Cardiac: Regular rate and rhythm, no murmur, no JVD, normal peripheral pulses, good capillary refill Abdominal: NABS x 4 quadrants, soft, nondistended, nontender to palpation, no rebound or guarding Extremities: R wrist radial band is in place s/p cath. Otherwise normal inspection, no peripheral edema or erythema, calfs nontender to palpation Psych: Normal mood and affect Neuro: AAO x 3, strength intact bilaterally and rated 5/5, no motor deficits, speech is clear, no peripheral sensory deficits Results & Data Results & Data ([facility]) Vital Signs (Past 12 Hours) Vital Signs Temp Pulse Pulse Resp BP BP Pulse Ox 05/10/21 08:13 36.4 C L 62 16 121/75 94 05/10/21 06:00 90 16 141/91 H 05/10/21 05:51 96 H 24 156/94 H 94 05/10/21 05:45 92 H 19 99 05/10/21 05:36 93 H 17 188/104 H 97 05/10/21 05:33 88 18 176/108 H 97 05/10/21 05:18 36 C L 89 20 155/82 H 98 Laboratory Results 05/10/21 05/10/21 05/10/21 06:42 05:39 05:39 WBC RBC Hgb Hct MCV MCH MCHC RDW Std Deviation RDW Coeff of Abdias Plt Count MPV Immature Gran % (Auto) Neut % (Auto) Lymph % (Auto) [place] % (Auto) Eos % (Auto) Baso % (Auto) Neut # (Auto) Lymph # (Auto) [place] # (Auto) Eos # (Auto) Baso # (Auto) Immature Gran # (Auto) PT 9.9 INR 0.9 APTT 25.9 PTT Ratio 0.9 Activ Coag Time Kaolin 309 H Sodium 134 L Potassium 3.9 Chloride 101 Carbon Dioxide 24 Anion Gap 9 BUN 12 Creatinine 0.66 Est Cr Clr Drug Dosing 95.3 Est GFR ( Amer) 112.9 Est GFR (Non-Af Amer) 97.4 BUN/Creatinine Ratio 18.2 Glucose 172 H Calcium 9.1 Total Bilirubin 0.3 AST 21 ALT 28 Alkaline Phosphatase 69 Troponin I 0.34 H* Total Protein 6.8 Albumin 4.3 Globulin 2.5 Albumin/Globulin Ratio 1.7 SARS-CoV-2, RNA, NAAT 05/10/21 05/10/21 05:39 05:34 WBC 7.47 RBC 4.45 Hgb 13.8 Hct 40.1 MCV 90.1 MCH 31.0 MCHC 34.4 RDW Std Deviation 45.9 RDW Coeff of Abdias 13.9 Plt Count 329 MPV 9.6 Immature Gran % (Auto) 0.3 Neut % (Auto) 67.2 Lymph % (Auto) 20.9 [place] % (Auto) 9.8 Eos % (Auto) 1.3 Baso % (Auto) 0.5 Neut # (Auto) 5.02 Lymph # (Auto) 1.56 [place] # (Auto) 0.73 H Eos # (Auto) 0.10 Baso # (Auto) 0.04 Immature Gran # (Auto) 0.02 PT INR APTT PTT Ratio Activ Coag Time Kaolin Sodium Potassium Chloride Carbon Dioxide Anion Gap BUN Creatinine Est Cr Clr Drug Dosing Est GFR ( Amer) Est GFR (Non-Af Amer) BUN/Creatinine Ratio Glucose Calcium Total Bilirubin AST ALT Alkaline Phosphatase Troponin I Total Protein Albumin Globulin Albumin/Globulin Ratio SARS-CoV-2, RNA, NAAT NEGATIVE Diagnostic Findings Chest X-Ray 05/10/21 05:19 XR chest 1V portable CLINICAL HISTORY: Atypical chest pain. COMPARISON STUDY: Chest radiograph April 21, 2013. FINDINGS: Lung volumes are normal. No pneumothorax or pleural effusion is noted. There is no consolidation to suggest pneumonia. Mild cardiomegaly is noted. There is no evidence for pulmonary edema. There are postoperative findings within the cervical spine. Mild elevation of the right hemidiaphragm is unchanged. IMPRESSION: No acute cardiopulmonary findings. Mild cardiomegaly. ACT 112: Negative or not required by law. Electronically signed by: Dionisio Mccarthy M.D. 05/10/2021 6:50 AM Code Status & VTE Plan Code Status Full code-discussed with patient at bedside VTE Prophylaxis Plan VTE Prophylaxis will be ordered: Yes Supervising Physician Co-Signing Physician Notes Patient seen and examined. History notable for 60-year-old woman current smoker with hypertension who presents with chest pain that started on 2 - 3AM this morning Patient reports occasional smoking. Reports family history of brother dying in his 60s some months ago from a heart attack and mother had heart attack too but from an aneurysm Patient was noted to have inferior wall STEMI on presentation. Heart alert was called and patient was taken to [facility] where she got 2 drug eluting stents and distal RCA Physical exam notable for obese woman in no distress. Chest pain is resolved Inferior wall STEMI S/p 2 FRED to dRCA Was loaded with brilinta Continue ASA and brilinta Started on atorvastatin Check A1c and lipid panel Counselled patient extensively on smoking cessation. She reported she will quit Agree with other plans as detailed by Aletha Meza PA-C (1) ST elevation myocardial infarction (STEMI) Involved coronary artery: right coronary artery Qualified Code(s): I21.11 - ST elevation (STEMI) myocardial infarction involving right coronary artery (2) Chest pain Chest pain type: chest pain due to myocardial ischemia
[2021-05-10] MEDS ORDERED: ASPIRIN 81 MG ECTAB PO SCH (09:00)
[2021-05-10] MEDS: ATORVASTATIN 40 MG TAB PO SCH (09:54)
[2021-05-10] MEDS: METOPROLOL TARTRATE 25 MG TAB PO SCH ×2 (09:54→20:49)
[2021-05-10] MEDS: LOSARTAN POTASSIUM 25 MG TAB PO SCH (09:54)
[2021-05-10] MEDS: FLUoxetine HCL 20 MG CAP PO SCH (09:55)
--- NOTE | 2021-05-10 10:20 | Critical Care Consultation ---
Date of Consultation May 10, 2021 Assessment & Plan (1) ST elevation myocardial infarction (STEMI): Reason Critically Ill: 60-year-old female status post ST elevation LA PLAN: Resp: Tobacco use -Smoking cessation CV: Coronary artery disease -81 mg aspirin, 80 mg atorvastatin, 25 mg metoprolol, losartan 25 mg, Brilinta 90 mg twice daily ID: Afebrile GI/Nutrition: Obesity: BMI 30 Heme: DVT prophylaxis: Patient is ambulatory able to ambulate therefore pharmacologic prophylaxis not indicated Endocrine: ICU hyperglycemia protocol Hemoglobin A1c pending Vascular access: PIV Code Status: Full Code Disposition: ICU (2) HTN (hypertension): (3) Tobacco use: (4) Chest pain: History of Present Illness Reason for Consultation: Status post coronary PCI for STEMI Requesting Physician: Otis Reyes Attending Physician: Colleen Vieyra MD History of Present Illness Patient is a 60-year-old female who has a past medical history of hypertension, tobacco use, early age coronary artery disease from a brother who of an LA at age 62 who presents with increasing shortness of breath and chest pain and diaphoresis. In the emergency department patient's was diagnosed with acute ST elevation LA and underwent PCI and had 2 drug-eluting stents placed in the RCA. Allergies Allergy/AdvReac Type Severity Reaction Status Date / Time No Known Allergies Allergy Verified 05/10/21 05:57 Home Medications Medication Instructions Recorded Confirmed Type fluoxetine 10 mg capsule 20 mg PO DAILY 12/06/18 05/10/21 History hydrochlorothiazide 12.5 mg capsule 25 mg PO DAILY 12/06/18 05/10/21 History amlodipine 10 mg tablet 10 mg PO DAILY 05/10/21 05/10/21 History losartan 100 mg tablet 100 mg PO DAILY 05/10/21 05/10/21 History Patient History Medical History Cervical stenosis of spinal canal (04/30/13) HTN (hypertension) Surgical History H/O neck surgery H/O: hysterectomy Social History Smoking Status: Current some day smoker Hx Alcohol Use: Yes Hx Substance Use: No Preferred Language: Libyan Communication Ability: Effective Patent Lawyer Required: No Beliefs That Will Affect Care: None marital status: Current Living Situation: Spouse Feels Safe at Home: Yes Safety Concerns: Feels Safe At This Time Assistive Devices: None Review of Systems Review of Systems: During my evaluation patient is chest pain-free and without complaint Physical Exam Physical Exam: General: Alert. nontoxic. Skin: Warm, dry, Head: Atraumatic Ears, nose, mouth and throat: airway patent Cardiovascular: Normal peripheral perfusion Respiratory: no respiratory distress Gastrointestinal: Non distended Musculoskeletal: No deformity Results & Data Results & Data ([facility]) Vital Signs (Past 12 Hours) Vital Signs Temp Pulse Pulse Resp BP BP Pulse Ox 05/10/21 09:17 62 18 95 05/10/21 09:15 59 L 18 94 05/10/21 09:10 64 20 133/85 95 05/10/21 09:05 61 23 133/76 96 05/10/21 09:00 77 23 131/105 H 96 05/10/21 08:55 63 16 136/85 95 05/10/21 08:50 67 19 127/97 96 05/10/21 08:49 66 25 H 137/97 95 05/10/21 08:45 59 L 18 125/88 92 05/10/21 08:41 62 12 145/90 H 94 05/10/21 08:37 62 22 100/68 95 05/10/21 08:30 71 17 92 05/10/21 08:25 63 22 111/87 93 05/10/21 08:15 63 17 121/75 93 05/10/21 08:13 36.4 C L 62 16 121/75 94 05/10/21 08:10 68 22 127/73 92 05/10/21 08:05 64 24 123/80 91 05/10/21 08:03 68 20 117/74 91 05/10/21 08:02 74 18 127/77 91 05/10/21 08:00 67 25 H 92 05/10/21 07:45 80 24 89 L 05/10/21 07:44 82 21 121/70 90 05/10/21 07:42 78 26 H 05/10/21 07:41 62 05/10/21 06:00 90 16 141/91 H 05/10/21 05:51 96 H 24 156/94 H 94 05/10/21 05:45 92 H 19 99 05/10/21 05:36 93 H 17 188/104 H 97 05/10/21 05:33 88 18 176/108 H 97 05/10/21 05:18 36 C L 89 20 155/82 H 98 Laboratory Results 05/10/21 05/10/21 05/10/21 Range/Units 16:16 16:15 14:08 WBC (4.8-10.8) K/uL RBC (4.2-5.4) M/uL Hgb (12.0-16.0) g/dL Hct (37-47) % MCV (80-100) fL MCH (25-34) pg MCHC (32-36) g/dL RDW Std Deviation (36.4-46.3) fL RDW Coeff of Abdias (11.5-14.5) % Plt Count (130-400) K/uL MPV (7.4-10.4) fL Immature Gran % (Auto) % Neut % (Auto) % Lymph % (Auto) % [place] % (Auto) % Eos % (Auto) % Baso % (Auto) % Neut # (Auto) (1.4-6.5) K/uL Lymph # (Auto) (1.2-3.4) K/uL [place] # (Auto) (0.11-0.59) K/uL Eos # (Auto) (0-0.5) K/uL Baso # (Auto) (0-0.2) K/uL Immature Gran # (Auto) (0.00-0.02) K/uL PT (9.0-12.0) Seconds INR (0.9-1.1) APTT (21.0-31.0) Seconds PTT Ratio Activ Coag Time Kaolin (94-140) SECONDS Sodium (136-145) mmol/L Potassium (3.5-5.1) mmol/L Chloride (98-107) mmol/L Carbon Dioxide (21-32) mmol/L Anion Gap (3-11) BUN (6-23) mg/dl Creatinine (0.6-1.2) mg/dl Est Cr Clr Drug Dosing ml/min Est GFR ( Amer) ml/min Est GFR (Non-Af Amer) ml/min BUN/Creatinine Ratio (10-20) Glucose (70-99(Fasting)) mg/dl POC Glucose 150 H 237 H (70-99) mg/dl Calcium (8.5-10.1) mg/dl Total Bilirubin (0.2-1.0) mg/dl AST (13-39) U/L ALT (7-52) U/L Alkaline Phosphatase (34-104) U/L Troponin I 31.61 H* (0-0.04) ng/ml Total Protein (6.0-8.3) gm/dl Albumin (3.4-5.0) gm/dl Globulin (2.5-4.0) gm/dl Albumin/Globulin Ratio (0.9-2) Nasal Screen MRSA (PCR) (Negative) SARS-CoV-2, RNA, NAAT (NEGATIVE) 05/10/21 05/10/21 05/10/21 Range/Units 12:16 09:13 09:00 WBC (4.8-10.8) K/uL RBC (4.2-5.4) M/uL Hgb (12.0-16.0) g/dL Hct (37-47) % MCV (80-100) fL MCH (25-34) pg MCHC (32-36) g/dL RDW Std Deviation (36.4-46.3) fL RDW Coeff of Abdias (11.5-14.5) % Plt Count (130-400) K/uL MPV (7.4-10.4) fL Immature Gran % (Auto) % Neut % (Auto) % Lymph % (Auto) % [place] % (Auto) % Eos % (Auto) % Baso % (Auto) % Neut # (Auto) (1.4-6.5) K/uL Lymph # (Auto) (1.2-3.4) K/uL [place] # (Auto) (0.11-0.59) K/uL Eos # (Auto) (0-0.5) K/uL Baso # (Auto) (0-0.2) K/uL Immature Gran # (Auto) (0.00-0.02) K/uL PT (9.0-12.0) Seconds INR (0.9-1.1) APTT (21.0-31.0) Seconds PTT Ratio Activ Coag Time Kaolin (94-140) SECONDS Sodium (136-145) mmol/L Potassium (3.5-5.1) mmol/L Chloride (98-107) mmol/L Carbon Dioxide (21-32) mmol/L Anion Gap (3-11) BUN (6-23) mg/dl Creatinine (0.6-1.2) mg/dl Est Cr Clr Drug Dosing ml/min Est GFR ( Amer) ml/min Est GFR (Non-Af Amer) ml/min BUN/Creatinine Ratio (10-20) Glucose (70-99(Fasting)) mg/dl POC Glucose 138 H 170 H (70-99) mg/dl Calcium (8.5-10.1) mg/dl Total Bilirubin (0.2-1.0) mg/dl AST (13-39) U/L ALT (7-52) U/L Alkaline Phosphatase (34-104) U/L Troponin I (0-0.04) ng/ml Total Protein (6.0-8.3) gm/dl Albumin (3.4-5.0) gm/dl Globulin (2.5-4.0) gm/dl Albumin/Globulin Ratio (0.9-2) Nasal Screen MRSA (PCR) Negative (Negative) SARS-CoV-2, RNA, NAAT (NEGATIVE) 05/10/21 05/10/21 05/10/21 Range/Units 06:42 05:39 05:39 WBC (4.8-10.8) K/uL RBC (4.2-5.4) M/uL Hgb (12.0-16.0) g/dL Hct (37-47) % MCV (80-100) fL MCH (25-34) pg MCHC (32-36) g/dL RDW Std Deviation (36.4-46.3) fL RDW Coeff of Abdias (11.5-14.5) % Plt Count (130-400) K/uL MPV (7.4-10.4) fL Immature Gran % (Auto) % Neut % (Auto) % Lymph % (Auto) % [place] % (Auto) % Eos % (Auto) % Baso % (Auto) % Neut # (Auto) (1.4-6.5) K/uL Lymph # (Auto) (1.2-3.4) K/uL [place] # (Auto) (0.11-0.59) K/uL Eos # (Auto) (0-0.5) K/uL Baso # (Auto) (0-0.2) K/uL Immature Gran # (Auto) (0.00-0.02) K/uL PT 9.9 (9.0-12.0) Seconds INR 0.9 (0.9-1.1) APTT 25.9 (21.0-31.0) Seconds PTT Ratio 0.9 Activ Coag Time Kaolin 309 H (94-140) SECONDS Sodium 134 L (136-145) mmol/L Potassium 3.9 (3.5-5.1) mmol/L Chloride 101 (98-107) mmol/L Carbon Dioxide 24 (21-32) mmol/L Anion Gap 9 (3-11) BUN 12 (6-23) mg/dl Creatinine 0.66 (0.6-1.2) mg/dl Est Cr Clr Drug Dosing 95.3 ml/min Est GFR ( Amer) 112.9 ml/min Est GFR (Non-Af Amer) 97.4 ml/min BUN/Creatinine Ratio 18.2 (10-20) Glucose 172 H (70-99(Fasting)) mg/dl POC Glucose (70-99) mg/dl Calcium 9.1 (8.5-10.1) mg/dl Total Bilirubin 0.3 (0.2-1.0) mg/dl AST 21 (13-39) U/L ALT 28 (7-52) U/L Alkaline Phosphatase 69 (34-104) U/L Troponin I 0.34 H* (0-0.04) ng/ml Total Protein 6.8 (6.0-8.3) gm/dl Albumin 4.3 (3.4-5.0) gm/dl Globulin 2.5 (2.5-4.0) gm/dl Albumin/Globulin Ratio 1.7 (0.9-2) Nasal Screen MRSA (PCR) (Negative) SARS-CoV-2, RNA, NAAT (NEGATIVE) 05/10/21 05/10/21 Range/Units 05:39 05:34 WBC 7.47 (4.8-10.8) K/uL RBC 4.45 (4.2-5.4) M/uL Hgb 13.8 (12.0-16.0) g/dL Hct 40.1 (37-47) % MCV 90.1 (80-100) fL MCH 31.0 (25-34) pg MCHC 34.4 (32-36) g/dL RDW Std Deviation 45.9 (36.4-46.3) fL RDW Coeff of Abdias 13.9 (11.5-14.5) % Plt Count 329 (130-400) K/uL MPV 9.6 (7.4-10.4) fL Immature Gran % (Auto) 0.3 % Neut % (Auto) 67.2 % Lymph % (Auto) 20.9 % [place] % (Auto) 9.8 % Eos % (Auto) 1.3 % Baso % (Auto) 0.5 % Neut # (Auto) 5.02 (1.4-6.5) K/uL Lymph # (Auto) 1.56 (1.2-3.4) K/uL [place] # (Auto) 0.73 H (0.11-0.59) K/uL Eos # (Auto) 0.10 (0-0.5) K/uL Baso # (Auto) 0.04 (0-0.2) K/uL Immature Gran # (Auto) 0.02 (0.00-0.02) K/uL PT (9.0-12.0) Seconds INR (0.9-1.1) APTT (21.0-31.0) Seconds PTT Ratio Activ Coag Time Kaolin (94-140) SECONDS Sodium (136-145) mmol/L Potassium (3.5-5.1) mmol/L Chloride (98-107) mmol/L Carbon Dioxide (21-32) mmol/L Anion Gap (3-11) BUN (6-23) mg/dl Creatinine (0.6-1.2) mg/dl Est Cr Clr Drug Dosing ml/min Est GFR ( Amer) ml/min Est GFR (Non-Af Amer) ml/min BUN/Creatinine Ratio (10-20) Glucose (70-99(Fasting)) mg/dl POC Glucose (70-99) mg/dl Calcium (8.5-10.1) mg/dl Total Bilirubin (0.2-1.0) mg/dl AST (13-39) U/L ALT (7-52) U/L Alkaline Phosphatase (34-104) U/L Troponin I (0-0.04) ng/ml Total Protein (6.0-8.3) gm/dl Albumin (3.4-5.0) gm/dl Globulin (2.5-4.0) gm/dl Albumin/Globulin Ratio (0.9-2) Nasal Screen MRSA (PCR) (Negative) SARS-CoV-2, RNA, NAAT NEGATIVE (NEGATIVE) Critical Care Results & Data Vital Signs (Past 12 Hours) Vital Signs Temp Pulse Pulse Resp BP BP Pulse Ox 05/10/21 09:17 62 18 95 05/10/21 09:15 59 L 18 94 05/10/21 09:10 64 20 133/85 95 05/10/21 09:05 61 23 133/76 96 05/10/21 09:00 77 23 131/105 H 96 05/10/21 08:55 63 16 136/85 95 05/10/21 08:50 67 19 127/97 96 05/10/21 08:49 66 25 H 137/97 95 05/10/21 08:45 59 L 18 125/88 92 05/10/21 08:41 62 12 145/90 H 94 05/10/21 08:37 62 22 100/68 95 05/10/21 08:30 71 17 92 05/10/21 08:25 63 22 111/87 93 05/10/21 08:15 63 17 121/75 93 05/10/21 08:13 36.4 C L 62 16 121/75 94 05/10/21 08:10 68 22 127/73 92 05/10/21 08:05 64 24 123/80 91 05/10/21 08:03 68 20 117/74 91 05/10/21 08:02 74 18 127/77 91 05/10/21 08:00 67 25 H 92 05/10/21 07:45 80 24 89 L 05/10/21 07:44 82 21 121/70 90 05/10/21 07:42 78 26 H 05/10/21 07:41 62 05/10/21 06:00 90 16 141/91 H 05/10/21 05:51 96 H 24 156/94 H 94 05/10/21 05:45 92 H 19 99 05/10/21 05:36 93 H 17 188/104 H 97 05/10/21 05:33 88 18 176/108 H 97 05/10/21 05:18 36 C L 89 20 155/82 H 98 Lab & Micro Results (Past 24 Hours) RBC 4.45 M/uL (4.2-5.4) 05/10/21 WBC 7.47 K/uL (4.8-10.8) 05/10/21 Hgb 13.8 g/dL (12.0-16.0) 05/10/21 Hct 40.1 % (37-47) 05/10/21 MCV 90.1 fL (80-100) 05/10/21 MCH 31.0 pg (25-34) 05/10/21 MCHC 34.4 g/dL (32-36) 05/10/21 RDW Standard Deviation 45.9 fL (36.4-46.3) 05/10/21 RDW Coefficient of Variation 13.9 % (11.5-14.5) 05/10/21 Plt Count 329 K/uL (130-400) 05/10/21 MPV 9.6 fL (7.4-10.4) 05/10/21 Neutrophils (%) (Auto) 67.2 % 05/10/21 Lymphocytes (%) (Auto) 20.9 % 05/10/21 Monocytes # (Auto) 0.73 K/uL (0.11-0.59) H 05/10/21 Eosinophils # (Auto) 0.10 K/uL (0-0.5) 05/10/21 Immature Granulocyte % (Auto) 0.3 % 05/10/21 Neutrophils # (Auto) 5.02 K/uL (1.4-6.5) 05/10/21 Lymphocytes # (Auto) 1.56 K/uL (1.2-3.4) 05/10/21 Monocytes # (Auto) 0.73 K/uL (0.11-0.59) H 05/10/21 Eosinophils # (Auto) 0.10 K/uL (0-0.5) 05/10/21 Basophils # (Auto) 0.04 K/uL (0-0.2) 05/10/21 Immature Granulocyte # (Auto) 0.02 K/uL (0.00-0.02) 05/10/21 Na 134 mmol/L (136-145) L 05/10/21 K 3.9 mmol/L (3.5-5.1) 05/10/21 Cl 101 mmol/L (98-107) 05/10/21 CO2 24 mmol/L (21-32) 05/10/21 Anion Gap 9 (3-11) 05/10/21 BUN 12 mg/dl (6-23) 05/10/21 Creatinine 0.66 mg/dl (0.6-1.2) 05/10/21 Estimated GFR ( Amer) 112.9 ml/min 05/10/21 Estimated GFR (Non-Af Amer) 97.4 ml/min 05/10/21 BUN/Creatinine Ratio 18.2 (10-20) 05/10/21 Glu 172 mg/dl (70-99(Fasting)) H 05/10/21 Ca 9.1 mg/dl (8.5-10.1) 05/10/21 Total Bilirubin 0.3 mg/dl (0.2-1.0) 05/10/21 AST 21 U/L (13-39) 05/10/21 ALT 28 U/L (7-52) 05/10/21 Alkaline Phosphatase 69 U/L (34-104) 05/10/21 TP 6.8 gm/dl (6.0-8.3) 05/10/21 Albumin 4.3 gm/dl (3.4-5.0) 05/10/21 Globulin 2.5 gm/dl (2.5-4.0) 05/10/21 Albumin/Globulin Ratio 1.7 (0.9-2) 05/10/21 Calcium Level 9.1 mg/dl (8.5-10.1) 05/10/21 05:39 05/10/21 Prothromb Time International Ratio 0.9 (0.9-1.1) 05/10/21 05:39 05/10/21 Diagnostic Findings (Past 24 Hours) Chest X-Ray 05/10/21 05:19 XR chest 1V portable CLINICAL HISTORY: Atypical chest pain. COMPARISON STUDY: Chest radiograph April 21, 2013. FINDINGS: Lung volumes are normal. No pneumothorax or pleural effusion is noted. There is no consolidation to suggest pneumonia. Mild cardiomegaly is noted. There is no evidence for pulmonary edema. There are postoperative findings within the cervical spine. Mild elevation of the right hemidiaphragm is unchanged. IMPRESSION: No acute cardiopulmonary findings. Mild cardiomegaly. ACT 112: Negative or not required by law. Electronically signed by: Dionisio Mccarthy M.D. 05/10/2021 6:50 AM RT Ventilator Mngmt (Last Documented) Ventilator Ordered Settings Respiratory Rate 18 05/10/21 09:17 Ventilator - PT Measurements Respiratory Rate 18 Coding Level of Care Code 02828 Inpt Consult Level 4 Diagnoses HTN (hypertension) I10 Tobacco use Z72.0 ST elevation myocardial infarction (STEMI) I21.11 Involved coronary artery: right coronary artery Chest pain R07.9 Chest pain type: chest pain due to myocardial ischemia (1) ST elevation myocardial infarction (STEMI) Involved coronary artery: right coronary artery Qualified Code(s): I21.11 - ST elevation (STEMI) myocardial infarction involving right coronary artery (2) Chest pain Chest pain type: chest pain due to myocardial ischemia
--- NOTE | 2021-05-10 10:59 | Cardiology Consultation ---
Date of Consultation May 10, 2021 Assessment & Plan (1) ST elevation myocardial infarction (STEMI): (2) HTN (hypertension): (3) Dyslipidemia: (4) Tobacco use: (1) Inferior ST elevation myocardial infarction (STEMI): -Status post overlapping drug-eluting stents to the distal RCA -Medical management recommended for residual nonobstructive mid LAD, mid RCA disease. Continue aspirin, Brilinta, metoprolol, atorvastatin, losartan. -Echocardiogram in process. -At present, no evidence of volume overload at bedside, however elevated LV end- diastolic pressure noted to Top Cager, will need to keep this in mind moving forward. (2) HTN (hypertension): Continue metoprolol losartan. (3) Dyslipidemia: Atorvastatin 80 mg daily. (4) Tobacco use: Smoking cessation cardiac rehab recommended History of Present Illness Attending Physician: Colleen Vieyra MD History of Present Illness Shelby Garay is a 60 year old female seen in general cardiology consultation per the request of Dr Vieyra for managment of inferior ST segment elevation myodardial infarction. Patient seen by the undersigned in the medical intensive care unit this morning having undergone emergent cardiac catheterization earlier this morning. Patient describes onset of chest discomfort, epigastric discomfort shortness of breath and discomfort rating down her left arm, onset of symptoms 3:30 AM. Initial EKG performed in the emergency department at 5:26 AM revealed sinus rhythm at 91 bpm, with inferior ST segment elevation, most prominent in lead III, with reciprocal ST depression in lead I, aVL and V2. EKG pattern suggested RCA territory culprit with possible inferior wall and right ventricular involvement. Patient seen in emergent consultation by Dr. Reyes of interventional cardiology and underwent emergent cardiac catheterization per the "Heart Alert" pathway with findings of culprit 99% stenosis of the distal right coronary artery for which patient underwent PCI and placement of 2 overlapping drug-eluting stents to the distal right coronary artery. Cardiac catheterization findings otherwise notable for 30% residual mid LAD stenosis, 50% residual right coronary artery stenosis, and elevated left ventricular filling pressure, LV end-diastolic pressure of 30 mmHg. Post procedure, patient feeling better, with resolution of her angina. Repeat EKG performed just before 8 AM after her coronary intervention revealed mild residual inferior ST elevation, however dramatically improved compared to prior to catheterization. Patient hemodynamically was most recent blood pressure 133/85. She notes that in retrospect, in the days leading up to her presentation she may have had worsening intermittent indigestion symptoms. She is a current smoker, and has a strong family history of coronary heart disease. History is otherwise notable for obesity, BMI 34, cigarette smoking as noted above, hypertension, and dyslipidemia. Outpatient record notable for LDL level of 211 in October,, 157 in September,. Per review of outpatient notes, therapy with atorvastatin has been recommended, most recently prescribed05/02/2021, unclear if patient ever started this medication. Allergies Allergy/AdvReac Type Severity Reaction Status Date / Time No Known Allergies Allergy Verified 05/10/21 05:57 Home Medications Medication Instructions Recorded Confirmed Type fluoxetine 10 mg capsule 20 mg PO DAILY 12/06/18 05/10/21 History hydrochlorothiazide 12.5 mg capsule 25 mg PO DAILY 12/06/18 05/10/21 History amlodipine 10 mg tablet 10 mg PO DAILY 05/10/21 05/10/21 History losartan 100 mg tablet 100 mg PO DAILY 05/10/21 05/10/21 History Patient History Medical History Cervical stenosis of spinal canal (04/30/13) HTN (hypertension) Surgical History H/O neck surgery H/O: hysterectomy Social History Smoking Status: Current some day smoker Hx Alcohol Use: Yes Hx Substance Use: No Preferred Language: Palauan Communication Ability: Effective Balloon Tester Required: No Beliefs That Will Affect Care: None Current Living Situation: Spouse Feels Safe at Home: Yes Safety Concerns: Feels Safe At This Time Review of Systems Review of Systems: All systems reviewed & are unremarkable except as noted in HPI & below Physical Exam Constitutional: WD/WN, vitals as above Respiratory: normal respiratory effort, lungs clear to auscultation Cardiovascular: RRR, no murmur, no edema Gastrointestinal (Abdomen): normal bowel sounds, soft, nontender, no hepatosplenomegaly Neurologic: PERRL, EOMI, accommodation nl, no face palsy, no dysarthria Results & Data ([facility]) Vital Signs (Past 12 Hours) Vital Signs Temp Pulse Pulse Resp BP BP Pulse Ox 05/10/21 09:17 62 18 95 03/16/22 09:15 59 L 18 94 05/10/21 09:10 64 20 133/85 95 05/10/21 09:05 61 23 133/76 96 05/10/21 09:00 77 23 131/105 H 96 05/10/21 08:55 63 16 136/85 95 05/10/21 08:50 67 19 127/97 96 05/10/21 08:49 66 25 H 137/97 95 05/10/21 08:45 59 L 18 125/88 92 05/10/21 08:41 62 12 145/90 H 94 05/10/21 08:37 62 22 100/68 95 05/10/21 08:30 71 17 92 05/10/21 08:25 63 22 111/87 93 05/10/21 08:15 63 17 121/75 93 05/10/21 08:13 36.4 C L 62 16 121/75 94 05/10/21 08:10 68 22 127/73 92 05/10/21 08:05 64 24 123/80 91 05/10/21 08:03 68 20 117/74 91 05/10/21 08:02 74 18 127/77 91 05/10/21 08:00 67 25 H 92 05/10/21 07:45 80 24 89 L 05/10/21 07:44 82 21 121/70 90 05/10/21 07:42 78 26 H 05/10/21 07:41 62 05/10/21 06:00 90 16 141/91 H 05/10/21 05:51 96 H 24 156/94 H 94 05/10/21 05:45 92 H 19 99 05/10/21 05:36 93 H 17 188/104 H 97 05/10/21 05:33 88 18 176/108 H 97 05/10/21 05:18 36 C L 89 20 155/82 H 98 Laboratory Results Cardiac Enzymes 05/10/21 Range/Units 05:39 AST 21 (13-39) U/L Troponin I 0.34 H* (0-0.04) ng/ml Coagulation 05/10/21 Range/Units 05:39 PT 9.9 (9.0-12.0) Seconds APTT 25.9 (21.0-31.0) Seconds CBC 05/10/21 Range/Units 05:39 WBC 7.47 (4.8-10.8) K/uL RBC 4.45 (4.2-5.4) M/uL Hgb 13.8 (12.0-16.0) g/dL Hct 40.1 (37-47) % Plt Count 329 (130-400) K/uL Neut # (Auto) 5.02 (1.4-6.5) K/uL Lymph # (Auto) 1.56 (1.2-3.4) K/uL [place] # (Auto) 0.73 H (0.11-0.59) K/uL Eos # (Auto) 0.10 (0-0.5) K/uL Baso # (Auto) 0.04 (0-0.2) K/uL Comprehensive Metabolic Panel 05/10/21 Range/Units 05:39 Sodium 134 L (136-145) mmol/L Potassium 3.9 (3.5-5.1) mmol/L Chloride 101 (98-107) mmol/L Carbon Dioxide 24 (21-32) mmol/L BUN 12 (6-23) mg/dl Creatinine 0.66 (0.6-1.2) mg/dl Glucose 172 H (70-99(Fasting)) mg/dl Calcium 9.1 (8.5-10.1) mg/dl AST 21 (13-39) U/L ALT 28 (7-52) U/L Alkaline Phosphatase 69 (34-104) U/L Total Protein 6.8 (6.0-8.3) gm/dl Albumin 4.3 (3.4-5.0) gm/dl Intake and Output 05/09/21 05/10/21 05/10/21 22:59 06:59 14:59 Other: Weight 90.8 kg 72 kg Weight Measurement Method Chair Scale Built in [facility] Patient Weight 05/11/21 06:59 Weight 72 kg Diagnostic Findings EKG as noted above (1) ST elevation myocardial infarction (STEMI) Involved coronary artery: right coronary artery Qualified Code(s): I21.11 - ST elevation (STEMI) myocardial infarction involving right coronary artery
[2021-05-10] MEDS ORDERED: GLUCAGON FOR INJ 1 MG VIAL IM PRN (11:15)
[2021-05-10] MEDS ORDERED: GLUCOSE 10 TABS/TUBE PO PRN (11:15)
[2021-05-10] MEDS ORDERED: CARBOHYDRATES FOR HYPOGLYCEMIA PO PRN (11:15)
[2021-05-10] MEDS ORDERED: GLUCOSE 40% GEL 15 GM TUBE PO PRN (11:15)
[2021-05-10] MEDS ORDERED: DEXTROSE 50% 50 ML SYRINGE IV PRN (11:15)
[2021-05-10] MEDS: INSULIN ASPART PER UNIT SC SCH ×3 (14:41→20:02)
[2021-05-10] MEDS: TIMOLOL MALEATE 0.25% OP SOLN 5 ML BTL OP SCH (14:41)
[2021-05-10] MEDS ORDERED: MoRPHine SULFATE 2 MG/ML CARP IV PRN (19:29)
[2021-05-10] MEDS: TICAGRELOR 90 MG TAB PO SCH (20:48)
--- NOTE | 2021-05-10 21:51 | Electrocardiogram Report ---
Test Reason : Blood Pressure : / mmHG Vent. Rate : 091 BPM Atrial Rate : 091 BPM P-R Int : 168 ms QRS Dur : 078 ms QT Int : 360 ms P-R-T Axes : 059 037 100 degrees QTc Int : 442 ms Age and gender specific ECG analysis Normal sinus rhythm Possible Left atrial enlargement Low voltage QRS Septal infarct ST elevation consider inferior injury or acute infarct ACUTE VT / STEMI Consider right ventricular involvement in acute inferior infarct Abnormal ECG When compared with ECG of 21-APR-2013 09:35, Acute inferior infarction is now Present Confirmed by Fabio Whiting ([id number]) on 05/10/2021 9:50:57 PM Referred By: REFERRED SELF Confirmed By:Fabio Whiting
--- NOTE | 2021-05-10 22:03 | Electrocardiogram Report ---
Test Reason : Blood Pressure : / mmHG Vent. Rate : 091 BPM Atrial Rate : 091 BPM P-R Int : 172 ms QRS Dur : 070 ms QT Int : 340 ms P-R-T Axes : 000 140 074 degrees QTc Int : 418 ms Poor data quality, interpretation may be adversely affected Suspect arm lead reversal, interpretation assumes no reversal Likely represents right sided ECG Normal sinus rhythm Low voltage QRS ST elevation consider inferior injury or acute infarct ACUTE DC / STEMI Abnormal ECG When compared with ECG of 10-May-2021 05:26, Limb lead reversal is now present Current ECG likely right sided ECG Confirmed by Fabio Whiting ([id number]) on 05/10/2021 10:03:40 PM Referred By: REFERRED SELF Confirmed By:Fabio Whiting
[2021-05-11 05:34] LABS: Basophils # (auto) 0.04 K/uL (0-0.2); Basophils % (auto) 0.6 %; Eosinophils # (auto) 0.15 K/uL (0-0.5); Eosinophils % (auto) 2.1 %; Hematocrit (blood only) 37.2 % (37-47); Hemoglobin 12.3 g/dL (12.0-16.0); Immature Granulocytes # (auto) 0.02 K/uL (0.00-0.02); Immature Granulocytes % (auto) 0.3 %; Lymphocytes % (auto) 32.4 %; Mean Corpuscular Hemoglobin 30.2 pg (25-34); Mean Corpuscular Hgb Conc 33.1 g/dL (32-36); Mean Corpuscular Volume 91.4 fL (80-100); Mean Platelet Volume 9.8 fL (7.4-10.4); Monocytes # (auto) 0.72 K/uL (0.11-0.59); Monocytes % (auto) 10.1 %; Neutrophils # (auto) 3.87 K/uL (1.4-6.5); Neutrophils % (auto) 54.5 %; Platelet Count 269 K/uL (130-400); RDW Coefficient of Variation 13.9 % (11.5-14.5); Red Blood Count 4.07 M/uL (4.2-5.4)
[2021-05-11 06:01] LABS: Chol HDL Ratio 3.3 (0-5); Phosphorus 3.5 mg/dl (2.5-4.9)
--- NOTE | 2021-05-11 06:14 | Electrocardiogram Report ---
Test Reason : Blood Pressure : / mmHG Vent. Rate : 075 BPM Atrial Rate : 075 BPM P-R Int : 176 ms QRS Dur : 072 ms QT Int : 400 ms P-R-T Axes : 057 007 084 degrees QTc Int : 446 ms Normal sinus rhythm Possible Left atrial enlargement Low voltage QRS Inferior injury pattern ACUTE DE / STEMI Consider right ventricular involvement in acute inferior infarct Abnormal ECG When compared with ECG of 10-MAY-2021 05:46, QRS axis Shifted left Serial changes of evolving Inferior infarct Present Previous ECG was right sided Confirmed by Fabio Whiting ([id number]) on 05/11/2021 6:14:17 AM Referred By: REFERRED SELF Confirmed By:Fabio Whiting
--- NOTE | 2021-05-11 06:35 | Electrocardiogram Report ---
Test Reason : Blood Pressure : / mmHG Vent. Rate : 061 BPM Atrial Rate : 061 BPM P-R Int : 160 ms QRS Dur : 072 ms QT Int : 436 ms P-R-T Axes : 054 010 085 degrees QTc Int : 438 ms Age and gender specific ECG analysis Normal sinus rhythm Septal infarct (cited on or before 10-MAY-2021) Inferior injury pattern ACUTE MD / STEMI Consider right ventricular involvement in acute inferior infarct Abnormal ECG When compared with ECG of 10-MAY-2021 07:51, No significant change was found Confirmed by Fabio Whiting ([id number]) on 05/11/2021 6:34:51 AM Referred By: REFERRED SELF Confirmed By:Fabio Whiting
[2021-05-11 06:43] LABS: Estimated Average Glucose 177 mg/dl; Hemoglobin A1C 7.8 % (4.5-5.6)
[2021-05-11 07:45] LABS: BUN Creatinine Ratio 17.2 (10-20); Calcium 8.8 mg/dl (8.5-10.1); Est GFR (African American) 113.2 ml/min; Est GFR (Non-African American) 97.7 ml/min; Potassium 3.6 mmol/L (3.5-5.1)
[2021-05-11] MEDS: TICAGRELOR 90 MG TAB PO SCH (09:05)
[2021-05-11] MEDS: TIMOLOL MALEATE 0.25% OP SOLN 5 ML BTL OP SCH (09:05)
[2021-05-11] MEDS: METOPROLOL TARTRATE 25 MG TAB PO SCH (09:05)
[2021-05-11] MEDS: INSULIN ASPART PER UNIT SC SCH ×2 (09:06→11:46)
--- NOTE | 2021-05-11 09:29 | Critical Care Progress Note ---
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 nontoxic. Skin: Warm, dry, Head: Atraumatic Ears, nose, mouth and throat: airway patent Cardiovascular: Normal peripheral perfusion Respiratory: no respiratory distress Gastrointestinal: Non distended Musculoskeletal: No deformity Results & Data Results & Data ([facility]) Vital Signs (Past 12 Hours) Vital Signs Temp Pulse Resp BP Pulse Ox 05/11/21 06:00 55 L 22 128/62 92 05/11/21 05:00 57 L 16 123/75 92 05/11/21 04:00 58 L 20 128/91 91 05/11/21 03:01 36.6 C 05/11/21 03:00 60 14 120/77 92 05/11/21 02:00 59 L 17 125/74 92 05/11/21 01:00 64 19 113/71 91 05/11/21 00:00 79 16 123/72 91 05/10/21 23:00 58 L 19 124/71 92 05/10/21 22:48 36.7 C 05/10/21 22:00 60 13 96/63 L 93 Coding Level of Care Code 84231 Subseq Hosp Care Lvl [address] elevation myocardial infarction (STEMI) I21.11 Involved coronary artery: right coronary artery HTN (hypertension) I10 Tobacco use Z72.0 Chest pain R07.9 Chest pain type: chest pain due to myocardial ischemia (1) ST elevation myocardial infarction (STEMI) Involved coronary artery: right coronary artery Qualified Code(s): I21.11 - ST elevation (STEMI) myocardial infarction involving right coronary artery (2) Chest pain Chest pain type: chest pain due to myocardial ischemia
--- NOTE | 2021-05-11 09:38 | Cardiology Progress Note ---
Date of Service May 11, 2021 Assessment & Plan (1) ST elevation myocardial infarction (STEMI): (2) HTN (hypertension): (3) Dyslipidemia: (4) Tobacco use: Plan: (1) Inferior ST elevation myocardial infarction (STEMI): -Status post overlapping drug-eluting stents to the distal RCA -Medical management recommended for residual nonobstructive mid LAD, mid RCA disease. Continue aspirin, Brilinta, metoprolol, atorvastatin, losartan. -Echocardiogram post PCI = Normal LVEF 55-60%, mild posterior / inferior hypokinesis. -Troponin peaked at 31 ng/ml, trended down to 29 ng/ml on next measurement yesterday. -EKG 05/10/21, SR residual inferior ST elevation, however less prominent than noted pre PCI. -Increase activity as tolerated. -If able to walk in hallway without issue, plan for discharge today after lunch. -Continue ASA 81 mg (lifelong) , Brilinta 90 mg BID ( 1 year), atorvastatin 80 mg, losartan 25 mg daily. Change metoprolol to succinate 25 mg one time per day. (2) HTN (hypertension): metoprolol, losartan. (3) Dyslipidemia: Atorvastatin 80 mg daily. Patient with past atypical side effect with statin therapy of LE swelling. Discussed importance of proceeding with another trial. (4) Tobacco use: Smoking cessation, cardiac rehab recommended DISPOSITION Will need to confirm Brilinta affordable for patient prior to discharge. 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 Radial access instructions added to discharge plans. Admission and Anticipated Discharge Date Admission Date: May 10, 2021 Subjective Patient seen in follow up of inferior wall STEMI. Feels well with the exception of neck and back pain from being in the hospital bed. Telemetry reveals SR in the 50s to 60s. Review of Systems Review of Systems: All systems reviewed & are unremarkable except as noted in HPI & below Physical Exam Constitutional: WD/WN, vitals as above Respiratory: normal respiratory effort, lungs clear to auscultation Cardiovascular: RRR, no murmur, no edema Gastrointestinal (Abdomen): normal bowel sounds, soft, nontender, no hepatosplenomegaly Skin: right radial access site without hematoma, bandage in place. Neurologic: PERRL, EOMI, accommodation nl, no face palsy, no dysarthria Results & Data ([facility]) Vital Signs (Past 12 Hours) Vital Signs Temp Pulse Resp BP Pulse Ox 05/11/21 06:00 55 L 22 128/62 92 05/11/21 05:00 57 L 16 123/75 92 05/11/21 04:00 58 L 20 128/91 91 05/11/21 03:01 36.6 C 05/11/21 03:00 60 14 120/77 92 05/11/21 02:00 59 L 17 125/74 92 05/11/21 01:00 64 19 113/71 91 05/11/21 00:00 79 16 123/72 91 05/10/21 23:00 58 L 19 124/71 92 05/10/21 22:48 36.7 C 05/10/21 22:00 60 13 96/63 L 93 Laboratory Results Cardiac Enzymes 05/10/21 05/10/21 Range/Units 14:08 19:56 Troponin I 31.61 H* 29.77 H* (0-0.04) ng/ml Lipids 05/11/21 Range/Units 05:12 Triglycerides 177 H (0-150) mg/dl Cholesterol 186 (0-200) mg/dl HDL Cholesterol 57 mg/dl Cholesterol/HDL Ratio 3.3 (0-5) CBC 05/11/21 Range/Units 05:12 WBC 7.10 (4.8-10.8) K/uL RBC 4.07 L (4.2-5.4) M/uL Hgb 12.3 (12.0-16.0) g/dL Hct 37.2 (37-47) % Plt Count 269 (130-400) K/uL Neut # (Auto) 3.87 (1.4-6.5) K/uL Lymph # (Auto) 2.30 (1.2-3.4) K/uL Ransom # (Auto) 0.72 H (0.11-0.59) K/uL Eos # (Auto) 0.15 (0-0.5) K/uL Baso # (Auto) 0.04 (0-0.2) K/uL Comprehensive Metabolic Panel 05/11/21 Range/Units 06:59 Sodium 133 L (136-145) mmol/L Potassium 3.6 (3.5-5.1) mmol/L Chloride 100 (98-107) mmol/L Carbon Dioxide 25 (21-32) mmol/L BUN 11 (6-23) mg/dl Creatinine 0.64 (0.6-1.2) mg/dl Glucose 137 H (70-99(Fasting)) mg/dl Calcium 8.8 (8.5-10.1) mg/dl Intake and Output 05/10/21 05/11/21 05/11/21 22:59 06:59 14:59 Intake Total 120 / 1470 650 / 1470 Output Total 1 / 2 Balance 119 / 1468 650 / 1468 Intake: Oral 120 / 970 650 / 970 Output: # Bowel Movements 1 / 2 Other: # Unmeasured Voids 1 1 Weight 68.9 kg Weight Measurement Method Built in [facility] (1) ST elevation myocardial infarction (STEMI) Involved coronary artery: right coronary artery Qualified Code(s): I21.11 - ST elevation (STEMI) myocardial infarction involving right coronary artery
[2021-05-11] MEDS: ATORVASTATIN 40 MG TAB PO SCH (10:12)
[2021-05-11] MEDS: LOSARTAN POTASSIUM 25 MG TAB PO SCH (10:13)
[2021-05-11] MEDS: FLUoxetine HCL 20 MG CAP PO SCH (10:13)
--- NOTE | 2021-05-11 13:57 | Discharge Summary ---
Date of Service May 11, 2021 Admission HPI Per Admitting Provider This is a 60-year-old W with PMHx of HTN, tobacco use, and family history with a brother who of an MD at age 60, mother with angioplasty and from brain aneurysm. Her other medical history includes cervical spinal stenosis s/p neck surgery, and recent ankle fracture. She reports going to bed without any pain around 10-11pm, and was woken up by her dog early in the morning. She went to use the restroom and noticed increased SOB and thought at first it was abdominal cramping, but then quickly realized it was pain in her chest, and started sweating. She presented acutely to the ER approximately 2 AM with chest pain. She describes substernal pain with radiation to the arm, nausea and shortness of breath. Never in the past has ever experienced pain like this. Her chest pain initially was a 7/10 and was hemodynamically stable. Her EKG was changed showing inferior ST wave elevations. Heart alert was called and patient was taken to the cardiac [facility] by Dr. Reyes. Distal RCA was found to be 99% occluded, and 2 FRED were placed; one in the distal RCA, the second placed overlapping the proximal aspect of the initial stent due to moderate residual stenosis after the initial stent placement. Other findings include 30% occlusion of the mid LAD, 50% occlusion of the mid RCA. Patient was placed in the ICU for post procedural monitoring. Currently has no chest pain. Pt reports drinking alcohol 2-3 drinks, 3 times per week. She smokes cigarettes while she drinks, and considers herself a "closet smoker" because nobody in her family knows she does this. Admission Exam Per Admitting Provider General: awake, alert, no apparent distress, obese with BMI of 30 Head: Normocephalic, atraumatic ENT: PERRL, EOMI, no pharyngeal exudate, mucous membranes moist Chest: Clear to auscultation, on room air, no adventitious breath sounds Cardiac: Regular rate and rhythm, no murmur, no JVD, normal peripheral pulses, good capillary refill Abdominal: NABS x 4 quadrants, soft, nondistended, nontender to palpation, no rebound or guarding Extremities: R wrist radial band is in place s/p cath. Otherwise normal inspe ction, no peripheral edema or erythema, calfs nontender to palpation Psych: Normal mood and affect Neuro: AAO x 3, strength intact bilaterally and rated 5/5, no motor deficits, speech is clear, no peripheral sensory deficits Principal Diagnosis Inferior wall ST elevated Myocardial Infarction (Heart attack) Diabetes mellitus Discharge Exam Constitutional + well hydrated; no acute distress Eyes PERRL, conjunctivae normal, anicteric sclerae ENMT external ear and nose normal, oropharynx normal Respiratory normal respiratory effort, lungs clear to auscultation Cardiovascular RRR, no murmur, no edema Gastrointestinal (Abdomen) normal bowel sounds, soft, nontender, no hepatosplenomegaly Musculoskeletal no cyanosis or clubbing, extremities motor strength 5/5 Neurologic PERRL, EOMI, accommodation nl, no face palsy, no dysarthria Psychiatric A+Ox3, euthymic affect Discharge Data Allergies Allergy/AdvReac Type Severity Reaction Status Date / Time No Known Allergies Allergy Verified 05/10/21 05:57 Consultations 05/10/21 05:38 ED Decision to Admit Stat 05/10/21 07:40 Consult Cardiac Rehabilitation Routine 05/10/21 07:41 Consult Fryer Line Helper Routine 05/10/21 07:53 Consult Cardiology Routine 05/10/21 08:04 Consult Cardiology Routine Procedures Performed Operation Date: 05/10/21 06:00 Actual Procedures p Cineradiography w/Routine Exam - Charles Reyes MD p Cath, Left with Cors and Vent - Charles Reyes MD p Aspiration/PCI w/FRED for Stemi - Charles Reyes MD LM -in caliber, no significant disease LAD -medium caliber, 30% mid segment disease, distal vessel tapers to apex. Medium D1, D2 without significant disease. Circumflex -small caliber, no significant disease. RCA -dominant, medium caliber, 30% proximal disease, 50% mid segment disease, 99% distal stenosis. Small right PDA, PLB without significant disease LVEDP -30 -- PCI -- Antithrombotic therapy: Heparin, ticagrelor Procedure: RCA cannulated with JR4 guide Gut Dropper 50 wire passed across lesion into distal vessel Distal RCA lesion predilated with 2.0 compliant balloon Dilated lesion stented with 2.25 x 22 Phuc drug-eluting stent Stent post-dilated with 2.5 noncompliant balloon IC vasodilators administered for spasm Moderate residual stenosis just prior to stent and second FRED (2.5 x 12 mm [place]) placed across stenosis overlapping proximal aspect of initial stent Stent postdilated with 3.0 NC balloon Post procedure PALOMO 3 flow, stents well expanded with minimal residual stenosis and no apparent cardiac complications. Arterial Closure: TR band Summary: 1. Inferior STEMI/acute 99% distal RCA stenosis 2. Mild to moderate non-culprit coronary artery disease -30% mid LAD 50% mid RCA 3. Elevated intracardiac filling pressure 4. Successful PCI of mid to distal RCA with 2 overlapping drug-eluting stents (2.5 x 12, 2.25 x 22 mm Phuc; postdilated with 3.0 NC) Recommendations: Admit to ICU for continued monitoring Loaded with ticagrelor 180 mg in [facility] Continue dual-antiplatelet therapy for at least 1 year. Trend troponins until peak, Check Echo Uptitrate beta-hermelinda/ARB as BP allows High-dose statin Ordered Studies 05/10/21 05:52 CL Cath Imgs for PACS use only Stat Hospital Course (1) ST elevation myocardial infarction (STEMI): (2) Chest pain: (3) Tobacco use: (4) HTN (hypertension): Was admitted for chest pain Was found to have inferior STEMI Was taken to the cardiac [facility] by Dr. Reyes 05/10/2021, s/p 2 overlapping FRED placement in the mid to distal RCA Was loaded with Brilinta 180 mg in the [facility] Continue dual antiplatelet therapy x1 year. ASA and Brilinta for 1 year then ASA 81mg lifelong Started on Atorvastatin 80mg daily Amlodipine and HCTZ stopped for now Lisinopril changed to 25mg daily Started on metoprolol succinate Post cath Echo reviewed Lipid panel showed LDL of 125, TG 177, HDL 57 Hemoglobin A1c is 7.8 Patient was diagnosed with DM2. Provided with DM education, glucometer Started on metformin ER 500mg daily on discharge Counselled on diet, exercise and weight loss Patient to follow up with Cardiology and PCP Total Time Total Time Spent Total Time Spent (In Minutes): 40 Total Time Includes: Examination of the Patient, Discharge Planning, Medication Reconciliation and Communication With Other Providers Discharge Plan Discharge Items Patient Disposition: Home - Self-Care Reason For Visit: CHEST PAIN Discharge Diagnosis: Inferior wall ST elevated Myocardial Infarction (Heart attack) Diabetes mellitus Activity: As commented below Non-emergency contact: Primary Care Provider and Loan Approver Call non-emergency contact if: you have any medication questions Follow-up/Referrals: Caty Myers DO [Primary Care Provider] - Diet: Carb Consistent or DM2 and Heart Healthy Addtl Attending Provider Instructions: Mrs Garay. You came to the hospital due to chest pain. You were evaluated and found to be having a heart attack. You had cardiac catheterization with 2 stents placed in one of the blood vessels of your heart. You were also found to have diabetes mellitus. You were started on aspirin and ticagrelor (brilinta). You will be on aspirin 81mg for the rest of your life. You will be on brilinta for one year. You were also started on atorvastatin 80mg Your losartan was changed from 100mg to 25mg. Your amlodipine was stopped for now You were started on metoprolol succinate 25mg For your diabetes, you were started on metformin. Please monitor blood glucose as we discussed. It is extremely important thay you stop smoking completely as we discussed. Please ensure follow up with the Loan Approver and your Primary Doctor. It was a pleasure taking care of you. Addtl Cloth Mercerizing Supervisor Provider Instructions: ACTIVITY RECOMMENDATIONS: Excess manipulation of the wrist should be avoided for the next 24-48 hours. * No lifting over 2 pounds (approximately a 1/2 gallon of milk) with the utilized arm for 24 hours. * No strenuous activity such as bowling or tennis for 3 days. * Keep the site of the procedure covered with a bandage for 24 hours. *You may shower the day after the procedure. Do not take a tub bath or submerge the puncture site in water for the next 3 days. *Do not operate any motorized equipment for 3 days. SPECIAL CARE INSTRUCTIONS: The site may be slightly bruised and sore following your procedure. Should any of the following occur, contact the Dr. who performed your procedure. 1. Redness/inflammation, swelling, chills, or fever, or colored drainage at procedure site within 3-7 days after your procedure. 2. Coldness, discoloration, ongoing numbness, severe pain, or swelling. Expect mild tingling of hand and tenderness at the puncture site for up to three days. If this persists beyond three days, or other symptoms develop, notify the Dr. who performed your procedure. BLEEDING: If the procedure site on your wrist begins to bleed, do not panic 1. Place 1 or 2 fingers firmly just slightly above the insertion site to stop the bleeding. You may be able to feel your pulse as you hold pressure. 2. Lift your finger after 5 minutes to see if the bleeding has stopped. 3. Once the bleeding has stopped, gently wipe the wrist area clean with a bandage. * If the bleeding from your wrist does not stop after 10 minutes, or if there is a large amount of bleeding or spurting, call 911 (do not drive yourself to the hospital). SKIN IRRITATION: * You may experience some redness and/or swelling in the area where radiation was administered. If any skin irritation occurs, please contact your family physician. FOLLOW UP VISIT: Keep any scheduled doctor appointments. Stand-Alone Forms: My [facility] [employer], Smoking Cessation Medications and DC Order Prescriptions: New Brilinta 90 mg Tablet 90 mg PO BID 30 Days Qty: 60 RF: 1 atorvastatin 40 mg Tablet 80 mg PO QAM 30 Days Qty: 60 RF: 0 aspirin 81 mg Tablet,Delayed Release (Dr/Ec) 81 mg PO QAM 30 Days Qty: 30 RF: 0 losartan 25 mg Tablet 25 mg PO QAM 30 Days Qty: 30 RF: 0 metoprolol succinate 25 mg Tablet Extended Release 24 Hr 25 mg PO QAM 30 Days Qty: 30 RF: 0 metformin 500 mg tablet extended release 24hr 500 mg PO DAILY Qty: 30 RF: 0 (DME) lancets [OneTouch Delica Lancets] 33 gauge misc See Rx Instructions .Route Qty: 100 RF: 1 (DME) OneTouch Verio test strips Strip See Rx Instructions .Route Qty: 100 RF: 0 Continued fluoxetine 10 mg capsule 20 mg PO DAILY RF: 0 Discontinued hydrochlorothiazide 12.5 mg capsule 25 mg PO DAILY RF: 0 amlodipine 10 mg tablet 10 mg PO DAILY RF: 0 losartan 100 mg tablet 100 mg PO DAILY RF: 0 Discharge Orders: Discharge Order (Routine); Ordered 05/11/21 Ordered By: Colleen Vieyra Admission Data Admit Date/Time: 05/10/21 07:52 Attending Provider: Colleen Vieyra I. Admit Provider: Colleen Vieyra I. Primary Care Provider: Caty Myers Other Providers: Tonny Last ; Tano Gomes ; Charles Reyes ; Wilder Cleveland Other Interventions: Discharge Summary Assessment (RN) Last Done: 05/11/21 14:24
[2021-05-12] MEDS ORDERED: METOPROLOL SUCC 25MG EXT REL TAB PO SCH (09:00)
== END 2021-05-11 14:53 | disposition home or self-care (01) | DRG 247 ==
LOC: ED 05:15 → CC 06:05 → 1E 06:05